=== PATIENT | female | born 1950 | race American Indian/Alaskan Native ===

== ENCOUNTER 2018-06-21 11:39 | Outpatient (CLI) | payer OTHER | END 2018-06-21 11:40 | disposition home or self-care (01) | LOC: C.PAT 11:39 | DX: L72.3 Sebaceous cyst (principal) ==

== ENCOUNTER 2018-06-28 10:16 | Day surgery (SDC) | payer OTHER, MEDICARE ==
[2018-06-24 07:51] VITALS: BMI 22.1
[2018-06-28] MEDS ORDERED: Midazolam 2 MG/2 ML VIAL ONE (11:50)
[2018-06-28] MEDS ORDERED: Propofol 10 mg/ml Inj (20 ML) ONE (11:50)
[2018-06-28] MEDS ORDERED: Bupivacaine HCl 0.5% PF (10 ml) Inj ONE (11:50)
[2018-06-28] MEDS ORDERED: ceFAZolin 1 gm in NS 1 GM/100 ML BAG IVPB ONE (11:51)
[2018-06-28] MEDS ORDERED: Lidocaine/Epinephrine 1% 1:100000 10 ML IJ ONE (11:51)
--- NOTE | 2018-06-28 12:38 | PCM.SURG1 ---
Surgeon's Initial Post Op Note - Surgeon's Notes Surgeon: igor Maitre D: o Type of Anesthesia: IV Sedation Anesthesia Administered By: steve Pre-Operative Diagnosis: left axillary cyst over 4 cm Operative Findings: intact Post-Operative Diagnosis: same Operation Performed: excision 4 cm axillary Specimen/Specimens Removed: cyst Estimated Blood Loss: EBL {In ML}: 5 Blood Products Given: N/A Drains Used: No Drains Post-Op Condition: Good Date of Surgery/Procedure: 06/28/18 Time of Surgery/Procedure: 12:37
[2018-06-28 13:06] VITALS: O2SAT 100
[2018-06-28 14:29] VITALS: RESP 16; TEMP 97.8
[2018-06-28 16:09] VITALS: BP 148/73; PULSE 75
--- NOTE | 2018-06-28 16:12 | OP ---
PROCEDURE DATE: 06/28/2018 PREOPERATIVE DIAGNOSIS: Large sebaceus cyst of left axilla. POSTOPERATIVE DIAGNOSIS: Large sebaceus cyst of left axilla. PROCEDURE CARRIED OUT: Excision of 4-cm sebaceus cyst of left axilla. SURGEON: Terrence Tijerina Jr., MD. RADIAL SAW OPERATOR: None. ANESTHESIOLOGIST: Mr. Weinberg. TYPE OF ANESTHESIA: LMA. INDICATIONS: A 68-year-old woman with multiple other medical problems in the past, who presents with a large painful sebaceus cyst of over 4 cm in size in the axilla. OPERATIVE FINDINGS: This was removed intact. There was no pus. DESCRIPTION OF PROCEDURE: The patient was given general anesthesia, intravenous antibiotics administered. An incision was made ____ skin. This was excised completely and intact. Wound was then approximated with layer closure and the procedure was terminated. Blood loss for the procedure was 5 mL. Operation carried out was excision of 4-cm sebaceus cyst left axilla. Terrence Tijerina Jr., MD
== END 2018-06-28 15:30 | disposition home or self-care (01) ==
LOC: C.SDS 10:16
PROVIDERS: ATTEND Surgery Vascular Surgery
DX: L72.3 Sebaceous cyst (principal); I10 Essential (primary) hypertension; K21.9 Gastro-esophageal reflux disease without esophagitis
CPT/HCPCS: 11404; 88305; J0690; J2250; J2704; J3010